=== PATIENT | female | born 1960 | race Caucasian/White ===

== ENCOUNTER → 2018-10-24 | Outpatient (CLI) | payer BC ==
[~2018-10-24] MED LIST: None per pt
[2018-10-24 14:22] LABS: BASOPHILS # (AUTO) 0.03 x10^3/uL (0-0.1); BASOPHILS % (AUTO) 1 % (0-1); EOSINOPHILS # (AUTO) 0.05 x10^3/uL (0-0.4); EOSINOPHILS % (AUTO) 1 % (1-7); LYMPHOCYTES # (AUTO) 2.07 x10^3/uL (1-3.4); LYMPHOCYTES % (AUTO) 36 % (22-44); MD NO; MEAN CORPUSCULAR HEMOGLOBIN 30.2 pg (27.0-34.8); MEAN CORPUSCULAR HGB CONC 33.2 g/dL (32.4-35.8); MEAN CORPUSCULAR VOLUME 90.8 fL (80-100); MONOCYTES # (AUTO) 0.47 x10^3/uL (0.2-0.8); MONOCYTES % (AUTO) 8 % (2-9); NEUTROPHILS # (AUTO) 3.19 x10^3/uL (1.8-6.8); NEUTROPHILS % (AUTO) 55 % (42-75); PLATELET COUNT 276 x10^3/uL (130-400); RED CELL DISTRIBUTION WIDTH 12.8 % (9.6-15.2)
[2018-10-24 14:31] LABS: INTERNATIONAL NORMALIZED RATIO 0.97 (0.93-1.1); PROTHROMBIN TIME 10.2 Seconds (9.6-11.5)
[2018-10-24 14:37] LABS: ALANINE AMINOTRANSFERASE 34 U/L (12-78); ALBUMIN 4.1 g/dL (3.4-5.0); ANION GAP 9 mmol/L (5-15); CALCIUM 8.8 mg/dL (8.5-10.1); CHLORIDE 109 mmol/L (98-107); CREATININE 0.66 mg/dL (0.55-1.02)
[2018-10-24 14:39] LABS: ALKALINE PHOSPHATASE 69 U/L (45-117); BILIRUBIN,TOTAL 0.7 mg/dL (0.2-1.0); TOTAL PROTEIN 7.1 g/dL (6.4-8.2)
[2018-10-24 14:48] LABS: HEMOGLOBIN A1C 4.9 % (4.2-6.3)
== END | disposition home or self-care (01) ==
LOC: STAR 13:08
PROVIDERS: ATTEND Orthopaedic Surgery
DX: Z01.818 Encounter for other preprocedural examination (principal); M16.12 Unilateral primary osteoarthritis, left hip; R00.1 Bradycardia, unspecified
CPT/HCPCS: 36415; 80053; 83036; 85025; 85610; 85730; 87081; 93005

== ENCOUNTER 2018-11-02 05:30 | Inpatient (IN) | payer BC ==
[~2018-11-02] VITALS: Ht 177.8 cm; Wt 80.1 kg
[2018-11-02] MEDS ORDERED: LACTATED RINGERS 1,000 ML IV SCH (06:02)
[2018-11-02] MEDS ORDERED: VANCOMYCIN 1,000 MG ONE (06:12)
[2018-11-02] MEDS ORDERED: KETOROLAC 60 MG/2 ML ONE (06:12)
[2018-11-02] MEDS ORDERED: SODIUM CHLORIDE 0.9% 50 ML ONE (06:12)
[2018-11-02] MEDS ORDERED: TRANEXAMIC ACID 100 MG/ML, 10ML ONE ×2 (06:12)
[2018-11-02] MEDS ORDERED: EPINEPHRINE 1 MG/ML, 1ML ONE (06:12)
[2018-11-02] MEDS ORDERED: ROPIvacaine/PF 0.5%, 30 ML ONE (06:13)
[2018-11-02] MEDS ORDERED: NS + 20MEQ KCL 1,000 ML IV SCH (06:19)
[2018-11-02] MEDS ORDERED: MIDAZOLAM 1 MG/ML, 2ML ONE (06:24)
[2018-11-02] MEDS ORDERED: FENTANYL PF 250 MCG/5ML ONE (06:24)
[2018-11-02] MEDS ORDERED: MAGNESIUM HYDROXIDE 8%, 30ML UDC PO PRN (06:30)
[2018-11-02] MEDS ORDERED: SCOPOLAMINE PATCH, 1.5MG PATCH.TD72 TD ONE ×2 (06:30→07:00)
[2018-11-02] MEDS ORDERED: ACETAMINOPHEN 500 MG TABLET PO ONE (06:30)
[2018-11-02] MEDS ORDERED: ACETAMINOPHEN 325 MG TABLET PO PRN (06:30)
[2018-11-02] MEDS ORDERED: BISACODYL 10 MG SUPP PR PRN (06:30)
[2018-11-02] MEDS ORDERED: SENNA/DOCUSATE TABLET PO PRN (06:30)
[2018-11-02] MEDS ORDERED: HYDROcodone/APAP 5/325 TABLET PO PRN (06:30)
[2018-11-02] MEDS ORDERED: GABAPENTIN 300 MG CAPSULE PO ONE (06:30)
[2018-11-02] MEDS ORDERED: ONDANSETRON 4 MG TABLET PO PRN (06:30)
[2018-11-02] MEDS ORDERED: ZOLPIDEM 5MG TABLET PO PRN (06:30)
[2018-11-02] MEDS ORDERED: DIPHENHYDRAMINE 25 MG CAPSULE PO PRN (06:30)
[2018-11-02] MEDS ORDERED: ONDANSETRON 2MG/ML, 2ML IV PRN (06:30)
[2018-11-02] MEDS ORDERED: OXYcodone IR 5MG TABLET PO PRN (06:30)
[2018-11-02] MEDS ORDERED: DEXAMETHASONE 4 MG/ML, 1ML ONE (06:50)
[2018-11-02] MEDS ORDERED: ONDANSETRON 2MG/ML, 2ML ONE ×2 (06:50→08:22)
[2018-11-02] MEDS ORDERED: ROCURONIUM 10MG/ML,5ML ONE (06:50)
[2018-11-02] MEDS ORDERED: CEFAZOLIN 1,000 MG ONE (06:50)
[2018-11-02] MEDS ORDERED: SUCCINYLCHOLINE 20 MG/ML, 10ML ONE (06:50)
[2018-11-02] MEDS ORDERED: hydrALAzine 20 MG/ML, 1ML ONE (06:50)
[2018-11-02] MEDS ORDERED: PROPOFOL 10 MG/ML, 20ML ONE (06:50)
[2018-11-02] MEDS ORDERED: GLYCOPYRROLATE 0.2MG/1ML, 5ML ONE (06:50)
[2018-11-02] MEDS ORDERED: FENTANYL PF 100 MCG/2ML ONE (08:06)
[2018-11-02] MEDS: FENTANYL PF 100 MCG/2ML IV PRN ×2 (08:08→08:19)
[2018-11-02] MEDS ORDERED: OXYcodone 5 MG/5 ML ORAL.SOL UDC ONE (08:10)
[2018-11-02] MEDS ORDERED: HYDROmorphone 2 MG/ML, 1ML ONE (08:27)
[2018-11-02] MEDS ORDERED: ALBUTEROL SULFATE 2.5 MG/3 ML NPPB PRN (08:30)
[2018-11-02] MEDS ORDERED: MEPERIDINE/PF 25MG/0.5ML IVPush PRN (08:30)
[2018-11-02] MEDS ORDERED: PROMETHAZINE 25 MG/ML, 1ML IV PRN (08:30)
[2018-11-02] MEDS: HYDROmorphone 1 MG/ML, 1ML INJ IV PRN ×2 (08:30→08:45)
[2018-11-02] MEDS ORDERED: KETOROLAC 30 MG/1 ML IV PRN (08:30)
[2018-11-02] MEDS ORDERED: OXYcodone 5 MG/5 ML ORAL.SOL UDC PO PRN (08:30)
[2018-11-02] MEDS ORDERED: hydrALAzine 20 MG/ML, 1ML IV PRN (08:30)
[2018-11-02] MEDS ORDERED: LABETALOL 5MG/ML, 20ML IV PRN (08:30)
[2018-11-02] MEDS ORDERED: METOCLOPRAMIDE 5 MG/ML, 2ML IV PRN ×2 (08:30)
[2018-11-02] MEDS ORDERED: ONDANSETRON 2MG/ML, 2ML IVPush PRN (08:30)
[2018-11-02] MEDS ORDERED: METOCLOPRAMIDE 5 MG/ML, 2ML ONE (08:36)
[2018-11-02] MEDS ORDERED: DOCUSATE 100 MG CAPSULE PO SCH (09:00)
[2018-11-02] MEDS ORDERED: PROMETHAZINE 25 MG/ML, 1ML ONE (09:16)
[2018-11-02] MEDS ORDERED: CEFAZOLIN PMX 2GM/50ML 50 ML IVPB SCH (14:30)
[2018-11-02 14:48] VITALS: BP 112/67
[2018-11-02] MEDS ORDERED: OXYC5TAB3 PO (16:22)
[2018-11-02] MEDS ORDERED: TRAM50TA2 PO (16:23)
[2018-11-02] MEDS ORDERED: MELO7.5T31 PO (16:23)
[2018-11-02] MEDS ORDERED: ASPIRIN 81 MG TABLET EC PO SCH (18:00)
[2018-11-03] MEDS ORDERED: DEXAMETHASONE 4 MG/ML, 1ML IVPush SCH (06:00)
== END 2018-11-02 17:12 | disposition home or self-care (01) | DRG 470 ==
LOC: ORIP 05:30 → 4NOR 09:18 → DCLOUNGE 17:02
PROVIDERS: ADMIT Orthopaedic Surgery; ATTEND Orthopaedic Surgery
PROC: 0SRB06A Replacement of Left Hip Joint with Oxidized Zirconium on Polyethylene Synthetic Substitute, Uncemented, Open Approach (ICD-10-PCS; principal; 2018-11-02 07:00)
DX: M16.12 Unilateral primary osteoarthritis, left hip (principal); F17.200 Nicotine dependence, unspecified, uncomplicated
CPT/HCPCS: 72170; 76000; J0171; J0690; J1100; J1170; J1885; J2250; J2405; J2550; J2704; J2795; J3010; J3370; J3480; J0330; J0360; J2765; J7120